=== PATIENT | female | born 1985 ===

== ENCOUNTER 2024-10-31 13:03 | Outpatient (CLI) | payer OTHER, SELFPAY ==
--- NOTE | 2024-10-31 | S_PTH ---
PATIENT: Opal Arce LOC: [facility]#:[id number] AGE/SX: 39/F ROOM: RE10/31/[address]: Royal Negron M.D. : 1985 BED: DIS: 10/31/2024 SPEC #: [id number] RECD: 10/31/24 17:34 STATUS: DEBBIE REQ #: [id number] PAT: 10/31/24 00:[address]: Royal Negron DEPT: [facility] Surgical RECD BY: Edilia Villasenor MLT, ([facility]) Tissues: A - Skin Bx Procedures: Hematoxylin and Eosin Stain Gross and Microscopic Level 4
--- OUTSIDE RECORDS SUMMARY | 2024-10-31 13:44 | XMS_ITS ---
Author Organization Unknown Address [address] [place] [phone] Phone Care Team Providers Care Pot Holder Binder Name Role Phone BRENNEN QUILES Attending Unavailable ARI Rendon Primary Unavailable Immunization Immunization Date Status Additional Notes Code Code System Tdap 01/28/2018 Completed 115 CVX Influenza, split virus, quadrivalent, PF 02/08/2018 Completed 150 CVX Influenza, split virus, quadrivalent, PF 03/10/2019 Completed 150 CVX Influenza, split virus, quadrivalent, PF 04/09/2020 Completed 150 CVX Influenza, split virus, quadrivalent, PF 02/05/2021 Completed 150 CVX Influenza, split virus, quadrivalent, PF 03/16/2022 Completed 150 CVX Influenza, MDCK, quadrivalen t, PF 02/23/2023 Completed 171 CVX COVID-19, mRNA, LNP-S, PF, 3 0 mcg/0.3 mL dose 07/05/2020 Completed 208 CVX COVID-19, mRNA, LNP-S, PF, 3 0 mcg/0.3 mL dose 07/26/2020 Completed 208 CVX COVID-19, mRNA, LNP-S, PF, 3 0 mcg/0.3 mL dose 02/18/2021 Completed 208 CVX COVID-19, mRNA, LNP-S, PF, 3 0 mcg/0.3 mL dose, cory-sucrose 10/17/2021 Completed 217 CVX COVID-19, mRNA, LNP-S, bivalent, PF, 30 mcg/0.3 mL dose 02/10/2022 Completed 300 CVX Results CBC W/ DIFF - Collect Date/T rosalinda: 05/07/2023 08:59 [facility] ID: [id number] [address] [place], [place], [id number] LOINC: 32362-2 Test Value Unit Reference Range Code Code System Flag WBC 7.1 10^3uL L=4.8 H=10.8 RBC 4.73 10^6uL L=4.20 H=5.40 HEMOGLOBIN 13.7 g/dL L=12.0 H=16.0 718-7 LOINC HEMATOCRIT 40.5 VOL% L=37.0 H=47.0 4544-3 LOINC MCV 85.6 fL L=81.0 H=99.0 MCH 29.0 pg L=27.0 H=32.0 MCHC 33.8 g/dL L=32.0 H=36.0 PLATELETS 329 10^3uL L=100 H=400 33580-8 LOINC RDW 11.9 % L=11.7 H=15.5 %GRAN 63.1 % L=40.0 H=70.0 64817-7 LOINC %LYMPH 30.1 % L=20.0 H=45.0 736-9 LOINC %MONO 5.1 % L=2.0 H=10.0 39994-5 LOINC %EOS 0.8 % L=0.0 H=6.0 713-8 LOINC %BASO 0.6 % L=0.0 H=3.0 706-2 LOINC #NEUT 4.5 10^3uL L=1.9 H=7.6 04039-4 LOINC #LYMPH 2.1 10^3uL L=0.9 H=4.9 18493-5 LOINC #MONO 0.4 10^3uL L=0.1 H=0.9 36904-1 LOINC #EOS 0.1 10^3uL L=0.0 H=0.6 712-0 LOINC #BASO 0.04 10^3uL L=0.00 H=0.10 18407-8 LOINC #IM GRANS 0.0 10^3uL L=0.0 H=7.0 79348-4 LOINC %IM GRANS 0.3 % L=0.0 H=5.0 03781-0 LOINC %NRB 0.0 L=0.0 H=0.2 63955-0 LOINC #NRB 0.000 L=0.000 H=0.012 06828-5 LOINC MANUAL DIFF NOT INDICATED RBC MORPH NOT INDICATED Social History Type Status Start Date End Date Code Code Syst em Smoking History Never smoker (Never Smoked) 965293678 SNOMED CT Sex Female Medications Medication Start Date End Date Route Frequency Dose Code Code System Medication Instructions Home Meds Lisinopril 10MG Oral Tablet 03/28/2021 Unknown ORAL ONCE A DAY 10 MILLIGRAMS 749190 RxNorm TAKE 10 MILLIGRAMS ORAL ONCE A DAY TriNessa 28 35MCG-0.18MG;3 5MCG-0 Oral Tablet 03/28/2021 Unknown ORAL ONCE A DAY 1 unit(s) 470968 RxNorm TAKE 1 EACH ORAL ONCE A DAY Hospital Discharge Instructions Should you have any questions prior to discharge, please contact a member of your healthcare team. If you have left the hospital and have any questions, please contact your primary care physician. Reason For Referral No Data Found Allergies and Adverse Reactions Allergy Substance Reaction Severity Start Date Concern Status Co de Code System No Known Drug Allergies Active 309308304 SNOMED-CT Plan of Treatment Home Sleep Study Prep (00065) 3 CT Abdomen/Pelvis WWO Contrast (19412) 07/06/2023 CT Chest/Lung W Contrast (79326) 2023 NM Hepatobiliary Gall Bladder (24124) 0 09/15/2023 Personal Care Team Section Performer Name Performer Role Active Date Inactive Jorge Ramirez PCP - Primary care physician 2020-12-15 8
--- OUTSIDE RECORDS SUMMARY | 2024-10-31 13:44 | XMS_ITS ---
Author Organization Unknown Address [address] [place] [address] [phone] Phone Care Team Providers Care Attendance Officer Name Role Phone ANGLEDEAN FU Attending Unavailable ARI Rendon Primary Unavailable Immunization [...] mL dose 02/10/2022 Completed 300 CVX Results URINALYSIS w/Microscopy - Co llect Date/Time: 06/11/2023 09:29 [facility] ID: [id number] [address] [place], [place], [phone] LOINC: 48699-8 Test Value Unit Reference Range Code Code System Flag UR SOURCE CLEAN CATCH 59905-7 LOINC COLOR YELLOW YELLOW 5778-6 LOINC CLARITY CLEAR CLEAR 04046-7 LOINC SPEC GRAVITY 1.020 1.000-1.030 5811-5 LOINC PH 5.5 5.0 - 6.5 5803-2 LOINC LEUK EST NEGATIVE NEGATIVE 5799-2 LOINC NITRATE NEGATIVE NEGATIVE PROTEIN NEGATIVE NEGATIVE 5804-0 LOINC GLUCOSE NEGATIVE NEGATIVE 35217-0 LOINC KETONES NEGATIVE NEGATIVE 17491-6 LOINC UROBILINOGEN 0.2 NEGATIVE 5818-0 LOINC BILIRUBIN NEGATIVE NEGATIVE 84371-7 LOINC BLOOD TRACE-LY NEGATIVE 57287-9 LOINC WBC 0-2 0 - 2 79202-9 LOINC RBC 0-2 0 - 2 16605-4 LOINC EPITHELIAL FEW RARE-FEW 06299-2 LOINC BACTERIA FEW NONE SEEN 21448-3 LOINC MUCUS FEW NONE SEEN 8247-9 LOINC YEAST NOT PRESENT NOT PRESENT 50593-7 LOINC CASTS NONE SEEN 32996-7 LOINC CRYSTALS NONE SEEN 65237-0 LOINC Social History Type Status Start Date End Date Code Code Syst em Smoking History Never smoker (Never Smoked) 080369312 SNOMED CT Sex Female Medications Medication Start Date End Date Route Frequency Dose Code Code System Medication Instructions Home Meds Lisinopril 10MG Oral Tablet 03/28/2021 Unknown ORAL ONCE A DAY 10 MILLIGRAMS 235882 RxNorm TAKE 10 MILLIGRAMS ORAL ONCE A DAY TriNessa 28 35MCG-0.18MG;3 5MCG-0 Oral Tablet 03/28/2021 Unknown ORAL ONCE A DAY 1 unit(s) 989267 RxNorm TAKE 1 EACH ORAL ONCE A [...] Code System No Known Drug Allergies Active 108521600 SNOMED-CT Plan of Treatment Home Sleep Study Prep (96298) 3 CT Abdomen/Pelvis WWO Contrast (14993) 07/06/2023 CT Chest/Lung W Contrast (26022) 2023 NM Hepatobiliary Gall Bladder (06833) 0 09/15/2023 Personal Care Team Section Performer Name Performer Role Active Date Inactive Jorge Ramirez PCP - Primary care physician 2020-12-15 8
--- OUTSIDE RECORDS SUMMARY | 2024-10-31 13:44 | XMS_ITS ---
Author Organization Unknown Address [address] [place] [phone] Phone Care Team Providers Care Customs Brokerage Manager Name Role Phone ANGLE FU Attending Unavailable ARI Rendon Primary Unavailable [...] mL dose 02/10/2022 Completed 300 CVX Results MAGNESIUM - Collect Date/Jossue e: 12/02/2023 10:00 [facility] ID: [id number] [address] [place], [place], [address] LOINC: 14998-7 Test Value Unit Reference Range Code Code System Flag MAGNESIUM 2.0 mg/dL L=1.6 H=2.3 71359-2 LOINC BASIC METABOLIC PANEL - Jason ect Date/Time: 12/02/2023 10:00 [facility] ID: [id number] [address] [place], [place], [phone] LOINC: 92443-0 Test Value Unit Reference Range Code Code System Flag FASTING NO BUN 13 mg/dL L=7 H=20 3094-0 LOINC CREATININE 0.70 mg/dL L=0.52 H=1.04 2160-0 LOINC GLUCOSE 74 mg/dL L=74 H=106 2345-7 LOINC CALCIUM 9.6 mg/dL L=8.3 H=10.5 83151-4 LOINC SODIUM 138 mmol/L L=132 H=144 2951-2 LOINC POTASSIUM 3.7 mmol/L L=3.5 H=5.1 2823-3 LOINC CHLORIDE 101 mmol/L L=98 H=107 2075-0 LOINC CO2 27.0 mmol/L L=22.0 H=30.0 8-9 LOINC ANION GAP 14 L=10 H=20 01011-6 LOINC BUN/CREAT 18.6 3097-3 LOINC AGE 38 66009-0 LOINC eGFR NON-AFR 101 ml/min eGFR AFR AMER 122 ml/min Social History Type Status Start Date End Date Code Code Syst em Smoking History Never smoker (Never Smoked) 052249586 SNOMED CT Sex Female Medications Medication Start Date End Date Route Frequency Dose Code Code System Medication Instructions Home Meds Lisinopril 10MG Oral Tablet 03/28/2021 Unknown ORAL ONCE A DAY 10 MILLIGRAMS 003132 RxNorm TAKE 10 MILLIGRAMS ORAL ONCE A DAY TriNessa 28 35MCG-0.18MG;3 5MCG-0 Oral Tablet 03/28/2021 Unknown ORAL ONCE A DAY 1 unit(s) 968654 RxNorm TAKE 1 EACH ORAL ONCE A [...] Code System No Known Drug Allergies Active 803123965 SNOMED-CT Plan of Treatment Home Sleep Study Prep (77183) 3 CT Abdomen/Pelvis WWO Contrast (15406) 07/06/2023 CT Chest/Lung W Contrast (71390) 2023 NM Hepatobiliary Gall Bladder (93034) 0 09/15/2023 Personal Care Team Section Performer Name Performer Role Active Date Inactive Jorge Ramirez PCP - Primary care physician 2020-12-15 8
--- OUTSIDE RECORDS SUMMARY | 2024-10-31 13:45 | XMS_ITS ---
Author Organization Unknown Address [address] [place] [phone] Phone Care Team Providers Care Community Worker Name Role Phone ANGLEDEAN FU Attending Unavailable [...] mL dose 02/10/2022 Completed 300 CVX Results NM HEPATOBILIARY W/ PHARM - Completed: 09/15/2023 10:48 LOINC: EXAM DESCRIPTION: NM HEPATOBILIARY W/ PHARM RADIOPHARMACEUTICAL: 4.9 mCi Tc-99m mebrofenin and 1.7 ug sincalide via a right antecubital IV site REASON FOR STUDY: ABDOMINAL PAIN TECHNIQUE: Following the intravenous administration of the radiopharmaceutical, sequential abdominal images were obtained. COMPARISON: CT abdomen and pelvis 07/06/2023 FINDINGS: There is prompt, homogenous tracer localization throughout the liver. There is normal visualization of the intrahepatic ducts, common bile duct, and gallbladder. There is normal biliary to bowel transit. Following the slow intravenous administration of sincalide, the gallbladder ejection fraction was calculated and was 82% (normal: greater than 40%, equivocal: 30- 40%, and abnormal: less than 30%). IMPRESSION: No scintigraphic evidence of cystic duct obstruction. Normal contractile response of the gallbladder to sincalide. THIS IS AN ELECTRONICALLY VERIFIED FINAL REPORT 09/15/2023 11:18 AM - Electronically signed by Diana Foss M.D. FT: FT Report ID: [id number] Reading Location: [id number] Social History Type Status Start Date End Date Code Code Syst em Smoking History Never smoker (Never Smoked) 835043213 SNOMED CT Sex Female Medications Medication Start Date End Date Route Frequency Dose Code Code System Medication Instructions Home Meds Lisinopril 10MG Oral Tablet 03/28/2021 Unknown ORAL ONCE A DAY 10 MILLIGRAMS 360116 RxNorm TAKE 10 MILLIGRAMS ORAL ONCE A DAY TriNessa 28 35MCG-0.18MG;3 5MCG-0 Oral Tablet 03/28/2021 Unknown ORAL ONCE A DAY 1 unit(s) 379899 RxNorm TAKE 1 EACH ORAL ONCE A [...] Code System No Known Drug Allergies Active 181465649 SNOMED-CT Plan of Treatment Home Sleep Study Prep (29529) CT Abdomen/Pelvis WWO Contrast (99826) 07/06/2023 CT Chest/Lung W Contrast (52074) 2023 NM Hepatobiliary Gall Bladder (35572) 0 09/15/2023 Encounters Encounter Diagnosis Start Date Code Code Sys tem Right upper quadrant pain 09/15/2023 665965731 SN OMED-CT Personal Care Team Section Performer Name Performer Role Active Date Inactive Jorge Ramirez PCP - Primary care physician 2020-12-15 8
--- OUTSIDE RECORDS SUMMARY | 2024-10-31 13:45 | XMS_ITS ---
Author Organization Unknown Address [address] [place] [phone] Phone Care Team Providers Care Criminal Justice Lawyer Name Role Phone ANGLEDEAN FU Attending Unavailable [...] Results URINALYSIS w/Microscopy - Co llect Date/Time: 06/08/2023 16:33 [facility] ID: [id number] [address] [place], [place], [id number] LOINC: 10718-8 Test Value Unit Reference Range Code Code System Flag UR SOURCE CLEAN CATCH 34773-6 LOINC COLOR YELLOW YELLOW 5778-6 LOINC CLARITY SL CLOUDY CLEAR 72405-5 LOINC SPEC GRAVITY 1.020 1.000-1.030 5811-5 LOINC PH 8.0 5.0 - 6.5 5803-2 LOINC LEUK EST NEGATIVE NEGATIVE 5799-2 LOINC NITRATE NEGATIVE NEGATIVE PROTEIN NEGATIVE NEGATIVE 5804-0 LOINC GLUCOSE NEGATIVE NEGATIVE 59100-0 LOINC KETONES NEGATIVE NEGATIVE 23303-3 LOINC UROBILINOGEN 1.0 NEGATIVE 5818-0 LOINC BILIRUBIN NEGATIVE NEGATIVE 33046-4 LOINC BLOOD NEGATIVE NEGATIVE 64606-9 LOINC WBC 2-5 0 - 2 82390-2 LOINC RBC 0-2 0 - 2 59383-2 LOINC EPITHELIAL MODERATE RARE-FEW 67260-6 LOINC A BACTERIA FEW NONE SEEN 72893-1 LOINC MUCUS FEW NONE SEEN 8247-9 LOINC YEAST NOT PRESENT NOT PRESENT 74623-7 LOINC CASTS SEE BELOW 13258-0 LOINC CRYSTALS NONE SEEN 91006-9 LOINC CBC W/ DIFF - Collect Date/T rosalinda: 06/08/2023 16:33 [facility] ID: [id number] [place] [address], [id number] LOINC: 48287-1 Test Value Unit Reference Range Code Code System Flag WBC 9.1 10^3uL L=4.8 H=10.8 RBC 4.69 10^6uL L=4.20 H=5.40 HEMOGLOBIN 13.6 g/dL L=12.0 H=16.0 718-7 LOINC HEMATOCRIT 39.7 VOL% L=37.0 H=47.0 4544-3 LOINC MCV 84.6 fL L=81.0 H=99.0 MCH 29.0 pg L=27.0 H=32.0 MCHC 34.3 g/dL L=32.0 H=36.0 PLATELETS 327 10^3uL L=100 H=400 06738-4 LOINC RDW 12.2 % L=11.7 H=15.5 %GRAN 63.8 % L=40.0 H=70.0 73509-7 LOINC %LYMPH 28.5 % L=20.0 H=45.0 736-9 LOINC %MONO 6.0 % L=2.0 H=10.0 34574-4 LOINC %EOS 1.1 % L=0.0 H=6.0 713-8 LOINC %BASO 0.4 % L=0.0 H=3.0 706-2 LOINC #NEUT 5.8 10^3uL L=1.9 H=7.6 03819-6 LOINC #LYMPH 2.6 10^3uL L=0.9 H=4.9 72308-1 LOINC #MONO 0.5 10^3uL L=0.1 H=0.9 38021-4 LOINC #EOS 0.1 10^3uL L=0.0 H=0.6 712-0 LOINC #BASO 0.04 10^3uL L=0.00 H=0.10 43705-7 LOINC #IM GRANS 0.0 10^3uL L=0.0 H=7.0 54682-5 LOINC %IM GRANS 0.2 % L=0.0 H=5.0 56930-4 LOINC %NRB 0.0 L=0.0 H=0.2 81837-9 LOINC #NRB 0.000 L=0.000 H=0.012 94085-2 LOINC MANUAL DIFF NOT INDICATED RBC MORPH NOT INDICATED COMPREHENSIVE METABOLIC PANE L - Collect Date/Time: 06/08/2023 16:33 [facility] ID: [id number] [address] [place], [place], [address] LOINC: 78895-0 Test Value Unit Reference Range Code Code System Flag FASTING UNKNOWN BUN 12 mg/dL L=7 H=20 3094-0 LOINC CREATININE 0.70 mg/dL L=0.52 H=1.04 2160-0 LOINC GLUCOSE 102 mg/dL L=74 H=106 2345-7 LOINC SODIUM 138 mmol/L L=132 H=144 2951-2 LOINC POTASSIUM 3.4 mmol/L L=3.5 H=5.1 2823-3 LOINC L CHLORIDE 102 mmol/L L=98 H=107 2075-0 LOINC CO2 29.0 mmol/L L=22.0 H=30.0 8-9 LOINC ANION GAP 10 L=10 H=20 22275-7 LOINC OSMOLALITY 286 mOs/kG L=280 H=296 32103-8 LOINC BUN/CREAT 17.1 3097-3 LOINC CALCIUM 9.7 mg/dL L=8.3 H=10.5 95687-7 LOINC AST 21 U/L L=15 H=46 1920-8 LOINC ALT 19 U/L L=9 H=72 1742-6 LOINC ALKALINE PHOS 73 U/L L=38 H=126 6768-6 LOINC TOTAL BILI 0.6 mg/dL L=0.2 H=1.3 1975-2 LOINC ALBUMIN 4.1 G/dL L=3.5 H=5.0 1751-7 LOINC TOTAL PROTEIN 7.0 g/L L=6.3 H=8.2 2885-2 LOINC A/G RATIO 1.4 54445-7 LOINC AGE 38 07681-2 LOINC eGFR NON-AFR 101 ml/min eGFR AFR AMER 122 ml/min BETA HCG-QUANT - Collect Medardo e/Time: 06/08/2023 16:33 [facility] ID: [id number] [address] [place], [place], [address] LOINC: 85759-2 Test Value Unit Reference Range Code Code System Flag BETA HCG-QUANT < 2.39 mIU/mL L=0.00 H=6.00 LOINC Social History Type Status Start Date End Date Code Code Syst em Smoking History Never smoker (Never Smoked) 727496011 SNOMED CT Sex Female Medications Medication Start Date End Date Route Frequency Dose Code Code System Medication Instructions Home Meds Lisinopril 10MG Oral Tablet 03/28/2021 Unknown ORAL ONCE A DAY 10 MILLIGRAMS 154375 RxNorm TAKE 10 MILLIGRAMS ORAL ONCE A DAY TriNessa 28 35MCG-0.18MG;3 5MCG-0 Oral Tablet 03/28/2021 Unknown ORAL ONCE A DAY 1 unit(s) 919174 RxNorm TAKE 1 EACH ORAL ONCE A [...] Code System No Known Drug Allergies Active 150268801 SNOMED-CT Plan of Treatment Home Sleep Study Prep (09959) 3 CT Abdomen/Pelvis WWO Contrast (14250) 07/06/2023 CT Chest/Lung W Contrast (00039) 2023 NM Hepatobiliary Gall Bladder (14247) 0 09/15/2023 Personal Care Team Section Performer Name Performer Role Active Date Inactive Jorge Ramirez PCP - Primary care physician 2020-12-15 8
--- OUTSIDE RECORDS SUMMARY | 2024-10-31 13:45 | XMS_ITS ---
Author Organization Unknown Address [address] [place] [address] [phone] Phone Care Team Providers Care Air Box Tester Name Role Phone ANGLEDEAN FU Attending Unavailable [...] mL dose 02/10/2022 Completed 300 CVX Results H PYLORI STOOL ANTIGEN - Col lect Date/Time: 08/08/2023 11:00 [facility] ID: [id number] [place], [place], [address] LOINC: 75699-6 Test Value Unit Reference Range Code Code System Flag H. pylori Stool Ag, EIA Negative Negative 94017-6 LOINC Social History Type Status Start Date End Date Code Code Syst em Smoking History Never smoker (Never Smoked) 243074269 SNOMED CT Sex Female Medications Medication Start Date End Date Route Frequency Dose Code Code System Medication Instructions Home Meds Lisinopril 10MG Oral Tablet 03/28/2021 Unknown ORAL ONCE A DAY 10 MILLIGRAMS 717523 RxNorm TAKE 10 MILLIGRAMS ORAL ONCE A DAY TriNessa 28 35MCG-0.18MG;3 5MCG-0 Oral Tablet 03/28/2021 Unknown ORAL ONCE A DAY 1 unit(s) 329759 RxNorm TAKE 1 EACH ORAL ONCE A [...] Code System No Known Drug Allergies Active 188355366 SNOMED-CT Plan of Treatment Home Sleep Study Prep (06120) CT Abdomen/Pelvis WWO Contrast (55232) 07/06/2023 CT Chest/Lung W Contrast (24057) 2023 NM Hepatobiliary Gall Bladder (76127) 0 09/15/2023 Personal Care Team Section Performer Name Performer Role Active Date Inactive Jorge Ramirez PCP - Primary care physician 2020-12-15 8
--- OUTSIDE RECORDS SUMMARY | 2024-10-31 13:45 | XMS_ITS ---
Author Organization Unknown Address [address] [place] [address] [phone] Phone Care Team Providers Care Underwriting Service Representative Name Role Phone ANGLE FU Attending Unavailable [...] CBC W/ DIFF - Collect Date/T rosalinda: 02/03/2024 08:24 [facility] ID: [id number] [address] [place], [place], [id number] LOINC: 74778-7 Test Value Unit Reference Range Code Code System Flag WBC 7.0 10^3uL L=4.8 H=10.8 RBC 4.91 10^6uL L=4.20 H=5.40 HEMOGLOBIN 14.2 g/dL L=12.0 H=16.0 718-7 LOINC HEMATOCRIT 43.0 VOL% L=37.0 H=47.0 4544-3 LOINC MCV 87.6 fL L=81.0 H=99.0 MCH 28.9 pg L=27.0 H=32.0 MCHC 33.0 g/dL L=32.0 H=36.0 PLATELETS 267 10^3uL L=100 H=400 28977-0 LOINC RDW 12.1 % L=11.7 H=15.5 %GRAN 78.7 % L=40.0 H=70.0 03629-0 LOINC H %LYMPH 12.6 % L=20.0 H=45.0 736-9 LOINC L %MONO 6.9 % L=2.0 H=10.0 82117-0 LOINC %EOS 1.1 % L=0.0 H=6.0 713-8 LOINC %BASO 0.4 % L=0.0 H=3.0 706-2 LOINC #NEUT 5.5 10^3uL L=1.9 H=7.6 55329-9 LOINC #LYMPH 0.9 10^3uL L=0.9 H=4.9 05636-5 LOINC #MONO 0.5 10^3uL L=0.1 H=0.9 27778-6 LOINC #EOS 0.1 10^3uL L=0.0 H=0.6 712-0 LOINC #BASO 0.03 10^3uL L=0.00 H=0.10 62020-8 LOINC #IM GRANS 0.0 10^3uL L=0.0 H=7.0 44189-8 LOINC %IM GRANS 0.3 % L=0.0 H=5.0 60411-7 LOINC %NRB 0.0 L=0.0 H=0.2 98038-6 LOINC #NRB 0.000 L=0.000 H=0.012 69107-4 LOINC MANUAL DIFF NOT INDICATED RBC MORPH NOT INDICATED TSH / REFLEX FT4 - Collect D ate/Time: 02/03/2024 08:24 [facility] ID: [id number] [place] [address], [id number] LOINC: Test Value Unit Reference Range Code Code System Flag TSH 0.886 uIU/L L=0.470 H=4.680 70852-8 LOINC LIPID PANEL - Collect Date/T rosalinda: 02/03/2024 08:24 [facility] ID: [id number] [place] [address], [id number] LOINC: 65437-6 Test Value Unit Reference Range Code Code System Flag FASTING YES CHOLESTEROL 188 mg/dL L=0 H=200 2093-3 LOINC TRIGLYCERIDE 91 mg/dL L=0 H=150 2571-8 LOINC HDL 51 mg/dL L=40 H=60 5-9 LOINC LDL 119 mg/dL 2088-1 LOINC COMPREHENSIVE METABOLIC PANE L - Collect Date/Time: 02/03/2024 08:24 [facility] ID: [id number] [place] [address], [id number] LOINC: 56870-3 Test Value Unit Reference Range Code Code System Flag FASTING YES BUN 10 mg/dL L=7 H=20 3094-0 LOINC CREATININE 0.70 mg/dL L=0.52 H=1.04 2160-0 LOINC GLUCOSE 81 mg/dL L=74 H=106 2345-7 LOINC SODIUM 137 mmol/L L=132 H=144 2951-2 LOINC POTASSIUM 3.9 mmol/L L=3.5 H=5.1 2823-3 LOINC CHLORIDE 102 mmol/L L=98 H=107 2075-0 LOINC CO2 24.0 mmol/L L=22.0 H=30.0 2028-9 LOINC ANION GAP 15 L=10 H=20 25271-8 LOINC OSMOLALITY 282 mOs/kG L=280 H=296 82391-7 LOINC BUN/CREAT 14.3 3097-3 LOINC CALCIUM 9.1 mg/dL L=8.3 H=10.5 66144-2 LOINC AST 27 U/L L=15 H=46 1920-8 LOINC ALT 21 U/L L=9 H=72 1742-6 LOINC ALKALINE PHOS 93 U/L L=38 H=126 6768-6 LOINC TOTAL BILI 1.3 mg/dL L=0.2 H=1.3 1975-2 LOINC ALBUMIN 4.1 G/dL L=3.5 H=5.0 1751-7 LOINC TOTAL PROTEIN 7.1 g/L L=6.3 H=8.2 2885-2 LOINC A/G RATIO 1.4 58559-3 LOINC AGE 38 75730-6 LOINC eGFR NON-AFR 101 ml/min eGFR AFR AMER 122 ml/min Social History Type Status Start Date End Date Code Code Syst em Smoking History Never smoker (Never Smoked) 815408657 SNOMED CT Sex Female Medications Medication Start Date End Date Route Frequency Dose Code Code System Medication Instructions Home Meds Lisinopril 10MG Oral Tablet 03/28/2021 Unknown ORAL ONCE A DAY 10 MILLIGRAMS 984564 RxNorm TAKE 10 MILLIGRAMS ORAL ONCE A DAY TriNessa 28 35MCG-0.18MG;3 5MCG-0 Oral Tablet 03/28/2021 Unknown ORAL ONCE A DAY 1 unit(s) 222807 RxNorm TAKE 1 EACH ORAL ONCE A [...] Code System No Known Drug Allergies Active 688153096 SNOMED-CT Plan of Treatment Home Sleep Study Prep (80764) 3 CT Abdomen/Pelvis [facility] Contrast (98196) 07/06/2023 CT Chest/Lung W Contrast (93892) 2023 [place] Hepatobiliary Gall Bladder (70622) 0 09/15/2023 Personal Care Team Section Performer Name Performer Role Active Date Inactive Jorge Ramirez PCP - Primary care physician 2020-12-15 8
--- OUTSIDE RECORDS SUMMARY | 2024-10-31 13:46 | XMS_ITS ---
Author Organization Unknown Address [address] [place] [address] [phone] Phone Care Team Providers Care Manager Community Relations Name Role Phone ANGLE FU Attending Unavailable [...] mL dose 02/10/2022 Completed 300 CVX Results POTASSIUM - Collect Date/Jossue e: 06/23/2023 15:06 [facility] ID: [id number] [place], [place], [id number] LOINC: 2823-3 Test Value Unit Reference Range Code Code System Flag POTASSIUM 3.9 mmol/L L=3.5 H=5.1 2823-3 LOINC Social History Type Status Start Date End Date Code Code Syst em Smoking History Never smoker (Never Smoked) [id number] SNOMED CT Sex Female Medications Medication Start Date End Date Route Frequency Dose Code Code System Medication Instructions Home Meds Lisinopril 10MG Oral Tablet 03/28/2021 Unknown ORAL ONCE A DAY 10 MILLIGRAMS 707068 RxNorm TAKE 10 MILLIGRAMS ORAL ONCE A DAY TriNessa 28 35MCG-0.18MG;3 5MCG-0 Oral Tablet 03/28/2021 Unknown ORAL ONCE A DAY 1 unit(s) 246616 RxNorm TAKE 1 EACH ORAL ONCE A [...] Code System No Known Drug Allergies Active [id number] SNOMED-CT Plan of Treatment Home Sleep Study Prep (29570) CT Abdomen/Pelvis [facility] Contrast (71779) 07/06/2023 CT Chest/Lung W Contrast (33023) 2023 NM Hepatobiliary Gall Bladder (74018) 0 09/15/2023 Personal Care Team Section Performer Name Performer Role Active Date Inactive Jorge Ramirez PCP - Primary care physician 2020-12-15 8
--- OUTSIDE RECORDS SUMMARY | 2024-10-31 13:46 | XMS_ITS | Clinical Summary ---
Author Organization [facility] Address [address] [place] [id number] Care Team Providers Care Prosthetics Lab Technician Name Role Phone Derick Huber MD Primary Care Provider [phone] Encounters Date Type Department Care Team Description 08/01/2024 1:44 PM CDT - 08/01/2024 11:59 PM CDT Hospital Encounter [facility] [address] [place] [id number] Derick Huber MD Discharge Disposition: Home or Self Care (Routine Discharge) 08/01/2024 Travel from Last 3 Months Social History Tobacco Use Types Packs/Day Years Used Date Smoking Tobacco: Never Assessed Comments Unknown Sex and Gender Information Value Date Recorded Sex Assigned at Female 08/01/2024 1:39 PM CDT Legal 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 Gender Identity Not on file Sexual Orientation Not on file Plan of Treatment Health Maintenance Due Date Last Done Comments Cervical Cancer Screening Pap Smear (Age 30 to 64) Every 3 Years 1987 Annual Physical 1990 Hepatitis C 2005 Hepatitis B Vaccines (1 of 3 - 19+ 3-dose series) 2006 Cervical Cancer Screening Pap with HPV Testing (Age 30 to 64) Every 5 Years 2017 Cervical Cancer Screening with HPV 2017 COVID-19 Vaccine ( season) 2024 02/10/2022, 10/17/2021, 02/18/2021, Additional history exists DTaP, Tdap and Td Vaccines (2 - Td or Tdap) 01/29/2028 01/28/2018 HPV Vaccines Aged Out No longer eligi ble based on patient's age to complete this topic Meningococcal B Vaccine Aged Out No l onger eligible based on patient's age to complete this topic Meningococcal Vaccine Aged Out No tiffany truong eligible based on patient's age to complete this topic Pneumococcal Vaccine: Pediatrics (0 to 5 Years) and At-Risk Patients (6 to 49 Years) Aged Out No longer eligible based on patient's age to complete this topic RSV Immunizations Under 20 Months Aged Out No longer eligible based on patient's age to complete this topic Procedures Procedure Name Priority Date/Time Associated Diagnosis Comments XR KNEE VETO 3V Routine 08/01/2024 2:14 PM CDT Bilateral anterior knee pain from Last 3 Months Results * XR KNEE VETO 3V (08/01/2024 2:14 PM CDT) Anatomical Region Laterality Modality Knee Radiographic Esther ging 08/01/2024 2:18 PM CDT Impressions 08/01/2024 2:20 PM CDT IMPRESSION: Unremarkable. Ordered By: DERICK HUBER Interpreted By: Marvin Moses MD, 08/01/2024 2:18 PM Narrative 08/01/2024 2:20 PM CDT [address] [place] [address] Examination: Bilateral knees. Exam time: 1345 hours. Clinical history: Bilateral anterior pain, left greater than right. Comparison: Bilateral AP view, 08/09/2015. Technique: [place] and weightbearing AP and lateral views each. Findings: No fracture, dislocation or other acute bony abnormality is identified. No other significant bone or joint abnormality is noted. The soft tissues are unremarkable. Procedure Note Marvin Moses MD - 08/01/[address] [place] [address] Examination: Bilateral knees. Exam time: 1345 hours. Clinical history: Bilateral anterior pain, left greater than right. Comparison: Bilateral AP view, 08/09/2015. Technique: [place] and weightbearing AP and lateral views each. Findings: No fracture, dislocation or other acute bony abnormality isidentified. No other significant bone or joint abnormality is noted. Thesoft tissues are unremarkable. IMPRESSION: Unremarkable. Ordered By: DERICK HUBER Interpreted By: Marvin Moses MD, 08/01/2024 2:18 PM us Derick Huber MD GENERAL IMAGING Final Result from Last 3 Months Insurance [employer] Care Teams Prosthetics Lab Technician Relationship Specialty Start Date End Date Derick Huber MD [facility] [place] [address] PCP - General FAMILY PRACTICE 08/01/24
--- OUTSIDE RECORDS SUMMARY | 2024-10-31 13:46 | XMS_ITS ---
Author Organization Unknown Address [address] [place] [phone] Phone Care Team Providers Care Electronics Mechanic Name Role Phone ANGLE FU Attending Unavailable [...] mL dose 02/10/2022 Completed [address] ABD/PEL W+WO CONTRAST - C ompleted: 07/06/2023 10:42 LOINC: 92515-4 ADDENDUM REPORT: ADDENDUM: This addendum report supersedes the original report dated 07/06/2023 Mild bilateral pleural nodularity and thickening posteriorly over both lower lobes, with trace bilateral pleural effusions, nonspecific. Recommend further evaluation with CT chest with contrast. END OF ADDENDUM REPORT EXAM DESCRIPTION: CT ABD/PEL W+WO CONTRAST REASON FOR STUDY: RIGHT LOWER ABD PAIN RIGHT FLANK PAIN Duration: 1 MO -2 MONTHS TECHNIQUE: CT scan of the abdomen and pelvis performed without and with intravenous and without oral contrast using helical scanning technique with dynamic intravenous contrast injection. Reconstructed coronal and sagittal MPR images reviewed. All images stored on PACS. Automated exposure control was used as a dose optimization technique for this examination. CONTRAST TYPE/DOSE: 100 of ISOVUE 370 injected via RAC COMPARISON: None available. FINDINGS: LOWER CHEST: There is a mild bilateral pleural nodularity and thickening posteriorly over both lower lobes, with trace bilateral pleural effusions, nonspecific. LIVER: 7 mm hypoattenuating lesion within the left hepatic lobe anteriorly (3:35), which demonstrates enhancement. Additional 3 mm hypoattenuating lesion within right hepatic lobe (3:55), too small to characterize. GALLBLADDER: Normal. BILE DUCTS: No intrahepatic or extrahepatic ductal dilatation. SPLEEN: Normal size. No focal lesions. PANCREAS: No identified cystic or solid masses. No significant calcifications. No adjacent inflammation or peripancreatic fluid collections. Pancreatic duct not dilated. ADRENALS: Normal. KIDNEYS/URINARY TRACT: No identified significant cystic or solid masses. No visualized stones. No hydronephrosis or hydroureter. Symmetric enhancement. Urinary bladder is unremarkable. GI: No dilated bowel loops. No obvious wall thickening. Normal appendix. No significant diverticular disease. PERITONEUM: No free intraperitoneal gas. Trace amount of fluid within the pelvis. RETROPERITONEUM: No mass or adenopathy. REPRODUCTIVE: 26 mm left ovarian cyst. VASCULATURE: No abdominal aortic aneurysm. MUSCULOSKELETAL: No significant abnormality. IMPRESSION: -- IMPRESSION -- ? ? No hydronephrosis. No stone within the kidneys or ureters. ? ? 7 mm and 3 mm liver lesions, not very well characterized with CT technique. They can be further evaluated with liver MR as clinically indicated. THIS IS AN ELECTRONICALLY VERIFIED FINAL REPORT 07/06/2023 5:02 PM - Electronically signed by Roman Tirado M.D. WW: REID Report ID: [id number] Reading Location: [id number] THIS IS AN ELECTRONICALLY VERIFIED FINAL REPORT 07/06/2023 5:11 PM ? Addendum Electronically signed by Romna Tirado M.D. WW: REID Report ID: [id number] Reading Location: [id number] Social History Type Status Start Date End Date Code Code Syst em Smoking History Never smoker (Never Smoked) 609602904 SNOMED CT Sex Female Medications Medication Start Date End Date Route Frequency Dose Code Code System Medication Instructions Home Meds Lisinopril 10MG Oral Tablet 03/28/2021 Unknown ORAL ONCE A DAY 10 MILLIGRAMS 568884 RxNorm TAKE 10 MILLIGRAMS ORAL ONCE A DAY TriNessa 28 35MCG-0.18MG;3 5MCG-0 Oral Tablet 03/28/2021 Unknown ORAL ONCE A DAY 1 unit(s) 393606 RxNorm TAKE 1 EACH ORAL ONCE A [...] Code System No Known Drug Allergies Active 003445224 SNOMED-CT Plan of Treatment Home Sleep Study Prep (54248) 3 CT Abdomen/Pelvis WWO Contrast (45213) 07/06/2023 CT Chest/Lung W Contrast (99606) 2023 NM Hepatobiliary Gall Bladder (73689) 0 09/15/2023 Encounters Encounter Diagnosis Start Date Code Code Sys tem Liver disease, unspecified 07/06/2023 S NOMED-CT Personal Care Team Section Performer Name Performer Role Active Date Inactive Jorge Ramirez PCP - Primary care physician 2020-12-15 8 Imaging Narrative Notes
--- OUTSIDE RECORDS SUMMARY | 2024-10-31 13:46 | XMS_ITS ---
Author Organization Unknown Address [address] [place] [phone] Phone Care Team Providers Care Roofing Apprentice Name Role Phone ANGLE FU Attending Unavailable [...] dose 02/10/2022 Completed [address] CHEST/LUNG W/ CONTRAST - Completed: 07/30/2023 14:51 LOINC: EXAM DESCRIPTION: CT CHEST/LUNG W/ CONTRAST REASON FOR STUDY: Acute chest pain or heartburn.Pleural nodule, thickening of pleura. Duration: Jun 2023 TECHNIQUE: CT scan of the chest performed with intravenous contrast using helical scanning technique with dynamic intravenous contrast injection. Reconstructed coronal and sagittal MPR images reviewed. All images stored on PACS. Automated exposure control was used as a dose optimization technique for this examination. CONTRAST TYPE/DOSE: 100ml of Isovue 370 injected via RAC COMPARISON: None REFERENCE: Per ACR white paper recommendations, unless otherwise specified no follow-up imaging is recommended for incidental renal and adrenal lesions per consensus recommendations based on imaging criteria. Further lab evaluation could be pursued based on clinical findings. FINDINGS: LUNGS: No suspicious nodules or masses. Some linear scarring is seen in the right middle lobe. No pneumonia. PLEURA: No effusion. No pneumothorax. No pleural thickening was seen. MEDIASTINUM/JENNYFER: No identified masses or abnormal nodes. HEART: Heart size is normal with no pericardial effusion. VASCULATURE: No thoracic aortic aneurysm. AXILLA: No adenopathy. CHEST WALL: No masses. No subcutaneous air. HARDWARE/LINES/TUBES: None. UPPER ABDOMEN: No significant abnormality. MUSCULOSKELETAL: No significant abnormality. OTHER: No other significant abnormality. IMPRESSION: ? ? Negative CT. No pleural thickening was seen. THIS IS AN ELECTRONICALLY VERIFIED FINAL REPORT 08/02/2023 6:55 PM - Electronically signed by Saurav Penn M.D. JESSIKA: JESSIKA Report ID: [id number] Reading Location: [place] [address] Social History Type Status Start Date End Date Code Code Syst em Smoking History Never smoker (Never Smoked) [id number] [facility] Sex Female Medications Medication Start Date End Date Route Frequency Dose Code Code System Medication Instructions Home Meds Lisinopril 10MG Oral Tablet 03/28/2021 Unknown ORAL ONCE A DAY 10 MILLIGRAMS 465076 RxNorm TAKE 10 MILLIGRAMS ORAL ONCE A DAY TriNessa 28 35MCG-0.18MG;3 5MCG-0 Oral Tablet 03/28/2021 Unknown ORAL ONCE A DAY 1 unit(s) 377164 RxNorm TAKE 1 EACH ORAL ONCE A [...] Code System No Known Drug Allergies Active [id number] SNOMED-CT Plan of Treatment Home Sleep Study Prep (88248) 3 CT Abdomen/Pelvis WWO Contrast (89904) 07/06/2023 CT Chest/Lung W Contrast (98537) 2023 NM Hepatobiliary Gall Bladder (19500) 0 09/15/2023 Encounters Encounter Diagnosis Start Date Code Code Sys tem Mass of trunk 07/30/2023 [id number] SNOMED-CT Personal Care Team Section Performer Name Performer Role Active Date Inactive Jorge Ramirez PCP - Primary care physician 2020-12-15 8 Imaging Narrative Notes
== END 2024-10-31 13:04 | disposition home or self-care (01) ==
LOC: CHSLAB 13:11
PROVIDERS: PCP Specialist; Visit Provider Specialist
DX: C44.519 Basal cell carcinoma of skin of other part of trunk (principal)
CPT/HCPCS: 88305